=== PATIENT | female | born 1960 | race Caucasian/White ===

== ENCOUNTER 2019-05-18 08:03 | Emergency (ER) | payer MEDICARE, MEDICAID ==
[2019-05-18] MEDS ORDERED: ASPIRIN 81 MG TABLET, CHEWABLE PO ONE (08:17)
[2019-05-18] MEDS ORDERED: NITROGLYCERIN 0.4 MG/TAB 25 TAB/BOTTLE ONE (08:22)
[2019-05-18] MEDS ORDERED: NITROGLYCERIN/D5W 50 MG/250 ML RTUINJ IV ONE (08:26)
[2019-05-18] MEDS: NITROGLYCERIN 0.4 MG/TAB 25 TAB/BOTTLE SL PRN ×2 (08:26→08:33)
[2019-05-18] MEDS ORDERED: NITROGLYCERIN/D5W 50 MG/250 ML RTUINJ IV PRN (08:30)
[2019-05-18] MEDS ORDERED: METOPROLOL TARTRATE PF/INJ 5 MG/5 ML SDV IV ONE ×3 (08:32→08:49)
[2019-05-18 08:37] LABS: ABSOLUTE BASOPHILS # (AUTO) 0.1 10^3/uL (0.0-0.2); ABSOLUTE EOSINOPHILS # (AUTO) 0.5 10^3/uL (0.0-0.6); ABSOLUTE LYMPHOCYTES (AUTO) 2.4 10^3/uL (0.5-4.7); ABSOLUTE MONOCYTES (AUTO) 0.7 10^3/uL (0.1-1.4); ABSOLUTE NEUT (AUTO) 8.9 10^3/uL (1.7-8.2); BASOPHILS % (AUTO) 0.8 % (0-2); EOSINOPHILS % (AUTO) 4.1 % (0-6); HEMATOCRIT 42.8 % (36.0-47.0); HEMOGLOBIN 14.7 g/dL (12.0-15.5); LYMPHOCYTES % (AUTO) 18.8 % (13-45); MEAN CORPUSCULAR HGB CONC 34.4 g/dL (32.0-36.0); MEAN CORPUSCULAR VOLUME 87 fl (80-97); MONOCYTES % (AUTO) 5.7 % (3-13); RED BLOOD COUNT 4.91 10^6/uL (3.72-5.28); RED CELL DISTRIBUTION WIDTH 13.7 % (11.5-14.0); SEGMENTED NEUTROPHILS % (AUTO) 70.6 % (42-78); TOTAL CELLS COUNTED % (AUTO) 100 %; WHITE BLOOD COUNT 12.6 10^3/uL (4.0-10.5)
[2019-05-18] MEDS ORDERED: CLOPIDOGREL BISULFATE 300 MG TABLET PO ONE (08:39)
[2019-05-18] MEDS ORDERED: ACETAMINOPHEN 325 MG TABLET PO ONE (08:39)
[2019-05-18] MEDS ORDERED: ALTEPLASE INJ 100 MG VIAL ONE (08:41)
[2019-05-18] MEDS ORDERED: TENECTEPLASE INJ 50 MG KIT IV ONE ×2 (08:49→15:04)
[2019-05-18] MEDS ORDERED: HEPARIN SOD (PORCINE) 5,000 UNIT/ML 1 ML VIAL ONE (08:49)
[2019-05-18] MEDS ORDERED: HEPARIN SODIUM,PORCINE/D5W 25,000 UNIT/250 ML RTUINJ IV ONE (08:49)
[2019-05-18] MEDS ORDERED: HEPARIN SOD (PORCINE) 1,000 UNIT/ML 10 ML VIAL IV ONE (08:52)
[2019-05-18 08:55] VITALS: BP 172/110
--- NOTE | 2019-05-18 08:59 | RADIOLOGY REPORT (SQ) ---
EXAM DESCRIPTION: CHEST SINGLE VIEW COMPLETED DATE/TIME: 05/18/2019 8:34 am REASON FOR STUDY: STEMI COMPARISON: None. EXAM PARAMETERS: NUMBER OF VIEWS: One view. TECHNIQUE: Single frontal radiographic view of the chest acquired. RADIATION DOSE: NA LIMITATIONS: None. FINDINGS: LUNGS AND PLEURA: No opacities, masses or pneumothorax. No pleural effusion. MEDIASTINUM AND HILAR STRUCTURES: No masses. Contour normal. HEART AND VASCULAR STRUCTURES: Heart normal in size. Normal vasculature. BONES: No acute findings. HARDWARE: None in the chest. OTHER: No other significant finding. IMPRESSION: NO ACUTE RADIOGRAPHIC FINDING IN THE CHEST. TECHNICAL DOCUMENTATION: JOB ID: [id number] [employer]- All Rights Reserved Reading location - IP/workstation name: [email or web address]
[2019-05-18 09:00] LABS: PLATELET COUNT 392 10^3/uL (150-450)
[2019-05-18 09:06] LABS: INTERNATIONAL RATION (INR) 0.98; PROTHROMBIN TIME 12.9 SEC (11.4-15.4)
[2019-05-18 09:22] LABS: ALBUMIN 4.2 g/dL (3.5-5.0); ALKALINE PHOSPHATASE 89 U/L (38-126); ANION GAP 11 (5-19); ASPARTATE AMINO TRANSFERASE 42 U/L (14-36); BILIRUBIN,DIRECT 0.3 mg/dL (0.0-0.4); BILIRUBIN,TOTAL 0.8 mg/dL (0.2-1.3); BLOOD UREA NITROGEN 15 mg/dL (7-20); CALCIUM 9.9 mg/dL (8.4-10.2); CARBON DIOXIDE 24 mmol/L (22-30); CHLORIDE 99 mmol/L (98-107); CREATINE KINASE 252 U/L (30-135); GLUCOSE 253 mg/dL (75-110); POTASSIUM 4.4 mmol/L (3.6-5.0); TOTAL PROTEIN 7.2 g/dL (6.3-8.2)
--- NOTE | 2019-05-18 09:24 | ER Document Report ---
Entered by DANA MERINO SCRIBE 05/18/1938 Acting as scribe for:SUE MILLER MD ED Cardiac - General Chief Complaint: Chest Pain Stated Complaint: CHEST PAIN Time Seen by Provider: 05/18/19 08:30 Mode of Arrival: Ambulatory Information source: Patient Notes: 59 year old female with history significant for hypertension, hyperlipidemia, and [place] x3 that presents to the emergency department today with complaints of chest pain that radiates into her right arm which began this morning at 3:00 AM. Patient reports constant reproducible back pain which began yesterday at 11:00 AM. Patient states she has had 3 MIs in the past, 3 cardiac catheterizations with no stents placed. Patient states her second heart attack caused the most pain she states she had enzyme elevation during that heart attack. Patient reports a pain of 9/10 when she arrived here which has dropped to 3/10 after a dose of Lopressor IV, and sublingual nitroglycerin, and aspirin.. Patient states she is supposed to take aspirin daily but she does not. Patient's EKG shows acute inferior wall ST elevation myocardial infarction. Patient was put on nitroglycerin drip. Got an additional 5 mg of Lopressor IV. Plavix 300 mg. Heparin bolus and drip. T NK protocol. [facility] was activated when the patient arrived and took the patient right after the second EKG was done which showed worsening inferior wall ST elevation. - Related Data Allergies/Adverse Reactions: azithromycin Allergy (Verified 05/18/19 08:28) codeine Allergy (Verified 05/18/19 08:28) latex Allergy (Verified 05/18/19 08:28) Past Medical History - General Information source: Patient - STEMI - Social History Smoking Status: Former Smoker - Quit in 1999. Cigarette use (# per day): No Chew tobacco use (# tins/day): No Smoking Education Provided: No Frequency of alcohol use: Rare Drug Abuse: None Lives with: Family Family History: Hyperlipidemia, Hypertension Patient has suicidal ideation: No Patient has homicidal ideation: No - Past Medical History Cardiac Medical History: Reports: Hx Coronary Artery Disease, Hx Heart Attack - x3, Hx Hypercholesterolemia, Hx Hypertension Pulmonary Medical History: Reports: None EENT Medical History: Reports: None Neurological Medical History: Reports: None Endocrine Medical History: Reports: None Renal/ Medical History: Reports: None GI Medical History: Reports: None Musculoskeletal Medical History: Reports None Psychiatric Medical History: Reports: None Past Surgical History: Reports: Hx Cardiac Catheterization - x3, no stents placed, Hx Cholecystectomy, Hx Gynecologic Surgery - Intrauterine ablation, Hx Tubal Ligation Review of Systems - Review of Systems Constitutional: No symptoms reported EENT: No symptoms reported Cardiovascular: See HPI, Chest pain Gastrointestinal: No symptoms reported Genitourinary: No symptoms reported Female Genitourinary: Post menopausal Musculoskeletal: See HPI, Back pain Skin: No symptoms reported Hematologic/Lymphatic: No symptoms reported Neurological/Psychological: No symptoms reported -: Yes All other systems reviewed and negative Physical Exam - Vital signs Vitals: Temp Pulse Resp BP Pulse Ox 97.8 F 83 24 H 187/104 H 97 05/18/19 08:13 05/18/19 08:13 05/18/19 08:13 05/18/19 08:13 05/18/19 08:13 Interpretation: Hypertensive - General General appearance: Alert, Anxious In distress: Moderate - HEENT Head: Normocephalic, Atraumatic Eyes: Normal Pupils: PERRL - Respiratory Respiratory status: No respiratory distress Chest status: Nontender Breath sounds: Normal Chest palpation: Normal - Cardiovascular Rhythm: Regular Heart sounds: Normal auscultation Murmur: No - Abdominal Inspection: Normal Bowel sounds: Normal Tenderness: Nontender - Back Back: Tender - Tender to palpate the medial scapular muscles, right side worse than left. This does reproduce the back pain she has had since yesterday morning. - Extremities General upper extremity: Normal inspection General lower extremity: Normal inspection - Neurological Neuro grossly intact: Yes - Psychological Associated symptoms: Normal affect, Anxious - Skin Skin Temperature: Warm Skin Moisture: Dry Skin Color: Normal Course - Vital Signs Vital signs: Temp Pulse Resp BP Pulse Ox 97.8 F 83 19 172/110 H 98 05/18/19 08:13 05/18/19 08:13 05/18/19 08:45 05/18/19 08:46 05/18/19 08:46 - Laboratory Result Diagrams: 05/18/19 08:26 05/18/19 08:43 Laboratory results interpreted by me: 05/18/19 05/18/19 05/18/19 08:26 08:43 08:43 WBC 12.6 H Absolute Neuts (auto) 8.9 H Sodium 134.0 L Glucose 253 H AST 42 H Creatine Kinase 252 H CK-MB (CK-2) 19.60 H - EKG Interpretation by Me EKG shows normal: Sinus rhythm, [place], Intervals. abnormal: QRS Complexes - Acute ST elevation inferior wall W[place], anterior wall W[place] age-indeterminate, old lateral wall WV, ST-T Waves Rate: Normal - 74 Rhythm: NSR, PVC's When compared to previous EKG there are: Previous EKG unavailable - Consults Dr. Agrawal Consulted provider: other Critical Care Note - Critical Care Note Total time excluding time spent on procedures (mins): 30 Discharge - Discharge Clinical Impression: Acute ST elevation myocardial infarction (STEMI) Qualifiers: Involved coronary artery: unspecified coronary artery Qualified Code(s): I21.3 - ST elevation (STEMI) myocardial infarction of unspecified site Condition: Fair Disposition: [facility] Scribe Attestation: 05/18/19 09:01 I personally performed the services described in the documentation, reviewed and edited the documentation which was dictated to the scribe in my presence, and it accurately records my words and actions. I personally performed the services described in the documentation, reviewed and edited the documentation which was dictated to the scribe in my presence, and it accurately records my words and actions.
[2019-05-18 09:34] LABS: CREATINE KINASE MB 19.6 ng/mL (<4.55)
[2019-05-18 09:37] LABS: TROPONIN I 1.48 ng/mL
--- NOTE | 2019-05-20 00:26 | EKG REPORT ---
SEVERITY:- ABNORMAL ECG - SINUS RHYTHM VENTRICULAR PREMATURE COMPLEX INCOMPLETE RIGHT BUNDLE BRANCH BLOCK INFERIOR INFARCT, ACUTE LATERAL INFARCT, OLD ANTERIOR INFARCT, AGE INDETERMINATE : Confirmed by: Kecia Waldron 20-May-2019 00:25:24
--- NOTE | 2019-05-20 00:26 | EKG REPORT ---
SEVERITY:- ABNORMAL ECG - SINUS RHYTHM RIGHT BUNDLE BRANCH BLOCK INFERIOR INFARCT, ACUTE LATERAL INFARCT, AGE INDETERMINATE ANTERIOR INFARCT, POSSIBLY ACUTE : Confirmed by: Kecia aWldron 20-May-2019 00:25:32
== END 2019-05-18 09:00 | disposition short-term general hospital (02) ==
LOC: ER 08:03
DX: I21.19 ST elevation (STEMI) myocardial infarction involving other coronary artery of inferior wall (principal); I10 Essential (primary) hypertension; I25.10 Atherosclerotic heart disease of native coronary artery without angina pectoris; I25.2 Old myocardial infarction; T39.016A Underdosing of aspirin, initial encounter; Z91.14 Patient's other noncompliance with medication regimen; I49.3 Ventricular premature depolarization; R07.9 Chest pain, unspecified; M54.9 Dorsalgia, unspecified; Z88.1 Allergy status to other antibiotic agents; Z88.5 Allergy status to narcotic agent; Z91.040 Latex allergy status; Z87.891 Personal history of nicotine dependence
CPT/HCPCS: 93005; 36415; 82553; 82550; 85025; 85610; 80053; 84484; 71045; 93010; J3101; A9270 ×2; J3490 ×2

== ENCOUNTER 2020-08-07 20:40 | Emergency (ER) | payer MEDICARE, MEDICAID ==
[2020-08-07 21:20] LABS: ABSOLUTE EOSINOPHILS # (AUTO) 0.4 10^3/uL (0.0-0.6); ABSOLUTE LYMPHOCYTES (AUTO) 2.2 10^3/uL (0.5-4.7); ABSOLUTE MONOCYTES (AUTO) 0.7 10^3/uL (0.1-1.4); ABSOLUTE NEUT (AUTO) 5.5 10^3/uL (1.7-8.2); BASOPHILS % (AUTO) 0.5 % (0-2); EOSINOPHILS % (AUTO) 4.5 % (0-6); HEMOGLOBIN 13.3 g/dL (12.0-15.5); LYMPHOCYTES % (AUTO) 25.4 % (13-45); MEAN CORPUSCULAR HEMOGLOBIN 28.4 pg (27.0-33.4); MEAN CORPUSCULAR HGB CONC 33.3 g/dL (32.0-36.0); MEAN CORPUSCULAR VOLUME 85 fl (80-97); MONOCYTES % (AUTO) 7.8 % (3-13); PLATELET COUNT 288 10^3/uL (150-450); RED BLOOD COUNT 4.69 10^6/uL (3.72-5.28); RED CELL DISTRIBUTION WIDTH 14.1 % (11.5-14.0); SEGMENTED NEUTROPHILS % (AUTO) 61.8 % (42-78); TOTAL CELLS COUNTED % (AUTO) 100 %; WHITE BLOOD COUNT 8.9 10^3/uL (4.0-10.5)
[2020-08-07 21:38] LABS: ALKALINE PHOSPHATASE 96 U/L (38-126); ANION GAP 7 (5-19); ASPARTATE AMINO TRANSFERASE 20 U/L (14-36); BILIRUBIN,DIRECT 0.2 mg/dL (0.0-0.4); BILIRUBIN,TOTAL 0.2 mg/dL (0.2-1.3); BLOOD UREA NITROGEN 10 mg/dL (7-20); CALCIUM 8.3 mg/dL (8.4-10.2); CARBON DIOXIDE 27 mmol/L (22-30); CHLORIDE 102 mmol/L (98-107); CREATINE KINASE 56 U/L (30-135); GLUCOSE 297 mg/dL (75-110); POTASSIUM 3.2 mmol/L (3.6-5.0); TOTAL PROTEIN 5.4 g/dL (6.3-8.2)
--- NOTE | 2020-08-07 21:45 | RADIOLOGY REPORT (SQ) ---
EXAM DESCRIPTION: CHEST SINGLE VIEW CLINICAL HISTORY: 60 years Female, chest pain COMPARISON: Single view of the chest May 18, 2019 FINDINGS: Lungs: Lungs are clear. No pneumonia or edema. No pneumothorax or pleural effusion. Mediastinum: Cardiac and mediastinal silhouette are normal. Bones: Osseous structures are normal. IMPRESSION: No acute process. No significant interval change.
[2020-08-07 21:49] LABS: CREATINE KINASE MB 1.13 ng/mL (<4.55)
[2020-08-07 21:52] LABS: TROPONIN I < 0.012 ng/mL
[2020-08-07] MEDS ORDERED: MAG HYDROX/AL HYDROX/SIMETH SUSP 30 ML UDCUP PO ONE (23:03)
[2020-08-07] MEDS ORDERED: LIDOCAINE 2% VISCOUS SOLN 15 ML UDCUP PO ONE (23:03)
[2020-08-07] MEDS ORDERED: METOCLOPRAMIDE HCL ORAL SOLN 10 MG/10 ML UDCUP PO ONE (23:03)
--- NOTE | 2020-08-07 23:03 | ER Document Report ---
ED General - General Chief Complaint: Epigastric Pain Stated Complaint: EPIGASTRIC PAIN Time Seen by Provider: 08/07/20 21:59 Primary Care Provider: AR RIZVI PA-C [Primary Care Provider] - Follow up as needed Mode of Arrival: Medic Information source: Patient Notes: 60-year-old female presented to ED for complaint of epigastric pain. She states she was sitting on the couch at home when all of a sudden she had to burp and then she had a very sharp pain that radiated straight up to her chest and through to her back. She states she took aspirin and 2 nitro with little change. He states she did call the EMS and when they arrived they gave her 3 more nitro and 4 mg of Zofran. Patient states that by the time she had been nitros she went from a 8 out of 10 to a 5 out of 10. She states she does have a history of reflux as well is an extensive cardiac history. She states she did have an [place] 8 months ago had a cardiac cath with stents and then a year ago she had a stress test with her communications senior associate in [place] that was completely negative. She states she is diabetic type II takes Lantus insulin at night and Metformin during the day. Her blood sugar was elevated at 382 on the EMS and her sugar and her chemistry was elevated as well. I have given her her Lantus insulin and encouraged her to drink fluids at this time. She states she is very thirsty thirsty. Patient is alert oriented respirations regular nonlabored speaking in full sentences we will get a complete cardiac work-up as well as prescribe a GI cocktail first examined her. She has had the GI cocktail and states she feels much better with the medications. She states she does have significant reflux. Cardiac work-up will still be completed as ordered. Constitutional: Negative for fever. HENT: Negative for sore throat. Eyes: Negative for visual changes. Cardiovascular: Complains of epigastric pain rating to her chest to her back Respiratory: Negative for shortness of breath. Gastrointestinal: Gastric pain radiating up through her chest and through to her back states she has a significant history of reflux Genitourinary: Negative for dysuria. Musculoskeletal: HPI Skin: Negative for rash. Neurological: Negative for headaches, weakness or numbness. 10 point ROS negative except as marked above and in HPI. VITAL SIGNS: Within normal limits. GENERAL: No acute distress, non-toxic appearance. HEAD: Normal with no signs of head trauma. EYES: PERRLA, EOMI, conjunctiva normal, no discharge. EARS: Hearing grossly intact. NOSE: Normal. THROAT: Oropharynx is normal. NECK: Normal range of motion, no tenderness, supple, no lymphadenopathy, No adenopathy, no JVD. CHEST: Clear breath sounds bilaterally. No wheezes, rales, or rhonchi. CARDIAC: EKG similar to last EKG. she had sinus rhythm with a right bundle branch block left ventricular hypertrophy with infarct of age undetermined apical pulse did sound regular with no murmurs VASCULAR: No Edema. Peripheral pulses normal and equal in all extremities. ABDOMEN: Abdomen soft nontender at this time she has hyperactive bowel sounds throughout all quadrants GASTROINTESTINAL: Hyperactive bowel sounds normal GENITOURINARY: Normal, No tenderness LYMPATHTIC: No lymphadenopathy noted. MUSCULOSKELETAL: Good range of motion of all major joints. Extremities without clubbing, cyanosis or edema. NEUROLOGICAL: Alert and oriented x 3. No focal sensory or strength deficits. Speech normal. Follows commands appropriately. PSYCHIATRIC: Normal Affect, judgement and mood. SKIN: Normal appearance with no rashes or lesions. TRAVEL OUTSIDE OF THE [place] IN LAST 30 DAYS: No - HPI Onset: This evening Onset/Duration: Sudden Quality of pain: Burning Severity: Moderate Pain Level: 3 Associated symptoms: Chest pain - Epigastric pain radiates to chest and back started after a large burp, Nausea Exacerbated by: Denies Relieved by: Denies Similar symptoms previously: Yes Recently seen / treated by doctor: Yes - Related Data Allergies/Adverse Reactions: azithromycin Allergy (Verified 05/18/19 08:28) codeine Allergy (Verified 05/18/19 08:28) latex Allergy (Verified 05/18/19 08:28) Home Medications: gabapentin, metoprolol, euthrux, metformin, fluoxetine, glipizide, losartan Past Medical History - General Information source: Patient - Social History Smoking Status: Former Smoker Frequency of alcohol use: None Drug Abuse: None Lives with: Family - Daughter Family History: Hyperlipidemia, Hypertension Patient has suicidal ideation: No Patient has homicidal ideation: No - Past Medical History Cardiac Medical History: Reports: Hx Coronary Artery Disease, Hx Heart Attack - x3, Hx Hypercholesterolemia, Hx Hypertension Pulmonary Medical History: Reports: None EENT Medical History: Reports: None Neurological Medical History: Reports: None Endocrine Medical History: Reports: Hx Diabetes Mellitus Type 2 Renal/ Medical History: Reports: None Malignancy Medical History: Reports: None GI Medical History: Reports: Hx Gastritis, Hx Gastroesophageal Reflux Disease Musculoskeletal Medical History: Reports Hx Arthritis, 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 Steward. Patient was pain-free at time of discharge stated the GI cocktail relieved her pain. Change in EKG from last visit to this visit. She did have a negative stress test according to the patient less than a year ago on her communications senior associate in [place]. She did have 2 - troponins. - Vital Signs Vital signs: Temp Pulse Resp BP Pulse Ox 97.9 F 19 144/68 H 96 08/08/20 02:33 08/08/20 02:32 08/08/20 02:33 08/08/20 02:32 - Laboratory Results Result Diagrams: 08/07/20 21:04 08/07/20 21:04 Laboratory Results Interpreted: 08/07/20 08/07/20 08/08/20 21:04 21:04 01:17 RDW 14.1 H Sodium 136.3 L Potassium 3.2 L Glucose 297 H POC Glucose 188 H Calcium 8.3 L Total Protein 5.4 L Albumin 3.0 L Critical Laboratory Results Reviewed: No Critical Results - Radiology Results Critical Radiology Results Reviewed: No Critical Results Discharge - Discharge Clinical Impression: Epigastric abdominal pain, Chronic GERD Condition: Stable Disposition: HOME, SELF-CARE Additional Instructions: Reflux Disease (GERD) Gastro-Esophageal Reflux Disease (GERD) is caused by stomach acid refluxing back up into the esophagus. The valve at the end of the esophagus may be weak. This is common in persons with a hiatal hernia. GERD symptoms can include indigestion, chest pain, heartburn, or food "sticking." Certain foods, alcohol, and aspirin can make GERD worse. Treatment depends on the severity. Usually, antacids or acid-suppressing medicines are used. When the esophagus is acutely inflamed, the physician will often prescribe membrane-protective drugs such as Carafate. Some patients benefit from medication such as Reglan that tightens the valve at the top of the stomach. Avoid those foods that bring on your symptoms. For many people, these foods are coffee, chocolate, onions, garlic, and carbonated drinks. Don't use alcohol, aspirin, caffeine, or tobacco. Don't eat late at night -- within 4 hours of bedtime. Don't over-eat. If necessary, elevate the head of your bed about 4 inches so that stomach acid will not roll up into your esophagus. Call the doctor if you develop severe chest pain, inability to swallow fluids, fever, or worsening symptoms. Take your reflux medicine as has been ordered. Your blood sugar was elevated when you first came in. You had not had your Lantus insulin. We did give you your Lantus insulin and it did reduce. I have given you a written report of your labs from earlier and after you have taken the Lantus. We did do a cardiac work-up due to your history of heart attack. Your cardiac enzymes were negative x2. Chest x-ray was negative. Call your primary care doctor and your communications senior associate call and let them know you were in the emergency room. FOLLOW-UP CARE: If you have been referred to a physician for follow-up care, call the physicians office for an appointment as you were instructed or within the next two days. If you experience worsening or a significant change in your symptoms, notify the physician immediately or return to the Emergency Department at any time for re-evaluation. Forms: Elevated Blood Pressure Referrals: AR RIZVI PA-C [Primary Care Provider] - Follow up as needed
[2020-08-07] MEDS ORDERED: LIDOCAINE 5% (700 MG) TRANSDERMAL ADH..PATCH TP ONE (23:05)
[2020-08-07] MEDS ORDERED: POTASSIUM CHLORIDE 10 MEQ TABLET.ER PO ONE (23:10)
[2020-08-07] MEDS ORDERED: INSULIN GLARGINE,HUM.REC.ANLOG 1,000 UNIT/10 ML VIAL SUBCUT ONE ×2 (23:13→23:35)
[2020-08-07] MEDS ORDERED: NORMAL SALINE 500 ML IV ONE (23:13)
--- NOTE | 2020-08-07 23:44 | EKG REPORT ---
SEVERITY:- ABNORMAL ECG - SINUS RHYTHM RIGHT BUNDLE BRANCH BLOCK LEFT VENTRICULAR HYPERTROPHY ANTEROLATERAL INFARCT, AGE INDETERMINATE : Confirmed by: Kecia Waldron 07-Aug-2020 23:43:35
[2020-08-08 03:02] VITALS: BP 144/68
== END 2020-08-08 02:40 | disposition home or self-care (01) ==
LOC: ER 20:40
DX: R10.13 Epigastric pain (principal); K21.9 Gastro-esophageal reflux disease without esophagitis; E11.9 Type 2 diabetes mellitus without complications; I25.10 Atherosclerotic heart disease of native coronary artery without angina pectoris; Z88.3 Allergy status to other anti-infective agents; Z91.040 Latex allergy status; Z88.6 Allergy status to analgesic agent; I25.2 Old myocardial infarction
CPT/HCPCS: 93005; 99285; 96360; 36415; 82553; 82962; 82550; 83690; 85025; 80053; 84484; 71045; 93010; A9270 ×5; J3490; J7040; J1815